=== PATIENT | female | born 1975 | race Caucasian/White ===

== ENCOUNTER 2016-09-22 00:25 | Emergency (ER) | payer OTHER ==
[~2016-09-22] VITALS: Ht 172.7 cm; Wt 77.6 kg
[~2016-09-22 00:25] MED LIST: CLONIDINE0.1 MG PO; HYDROXYZINE50 MG PO; PERCOCET 325 MG1 TAB PO; ZOFRAN4 M1 SL
--- NOTE | 2016-09-22 01:37 | ED GI/GU/ABDOMINAL COMPLAINT ---
History of Present Illness General Chief Complaint: General Adult Stated Complaint: "+N+V-D,KIDNEY INFECTION,FEVER SINCE 010 Source: patient Exam Limitations: no limitations Vital Signs & Intake/Output Vital Signs & Intake/Output Vital Signs Date Time Temp Pulse Resp B/P Pulse O2 O2 Flow FiO2 Ox Delivery Rate 09/22 0414 97.9 75 18 151/88 96 Room Air 09/22 0105 97.7 98 18 150/88 Allergies Coded Allergies: Iodinated Contrast Media - Oral and (Severe, ANAPHYLAXIS 09/22/16) venom-honey bee (Severe, ANAPHYLAXIS 09/22/16) morphine (Intermediate, HIVES 09/22/16) epinephrine (UNKNOWN 09/22/16) meperidine (UNKNOWN 09/22/16) Reconcile Medications CLONIDINE HCL (Clonidine) 0.1 MG TAB 1 TAB PO BID PRN OPITATE WITHDRAWAL Hydroxyzine Hydrochloride (Hydroxyzine) 50 MG TAB 1 TAB PO TID PRN WITHDRAWAL Ondansetron (Zofran Odt) 4 MG TAB.RAPDIS 1 TAB SL TID PRN nausea Ondansetron (Zofran Odt) 4 MG ODT 1 TAB SL TID PRN NAUSEA Oxycodone HCl/Acetaminophen (Percocet 10-325 MG Tablet) 10 MG-325 MG TABLET 1 TAB PO 4 TIMES/DAY PRN pain five... [id number] OXYCODONE HCL/ACETAMINOPHEN (Percocet 10-325 MG Tablet) 325 MG/10 MG TAB 1 TAB PO Q4-6 PRN PAIN OXYCODONE HCL/ACETAMINOPHEN (Percocet 10-325 MG Tablet) 325 MG/10 MG TAB 1 TAB PO Q4-6 PRN PAIN Triage Nurses Notes Reviewed? yes ? n Is pt currently ? No Onset: Gradual Duration: day(s): Timing: recent history Location: right flank, right lower quadrant Radiation: RLQ Activities at Onset: none Prior Abdominal Problems: none Modifying Factors: Worsens With: palpation, vomiting. Associated Symptoms: abdominal pain, nausea/vomiting HPI: 41-year-old woman presents with right flank pain and right lower quadrant pain for the past 3-4 days. She saw her primary care doctor who gave her ciprofloxacin for urinary tract infection. She states that she is no better. She notes that she has had several episodes of vomiting and nausea. She has also felt febrile. She has right lower quadrant abdominal pain. She has no shortness of breath chest pain diarrhea vaginal discharge. She is otherwise well. Past History Travel History Traveled to [place] past 21 day No Medical History Any Pertinent Medical History? 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 No Review of Systems Review of Systems Constitutional: Reports: no symptoms. EENTM: Reports: no symptoms. Respiratory: Reports: no symptoms. Cardiovascular: Reports: no symptoms. GI: Reports: no symptoms. Genitourinary: Reports: no symptoms. Musculoskeletal: Reports: no symptoms. Skin: Reports: no symptoms. Neurological/Psychological: Reports: no symptoms. Hematologic/Endocrine: Reports: no symptoms. Immunologic/Allergic: Reports: no symptoms. All Other Systems: Reviewed and Negative Physical Exam Physical Exam General Appearance: well developed/nourished, mild distress, moderate distress Head: atraumatic, normal appearance Eyes: Bilateral: normal appearance. Ears, Nose, Throat, Mouth: hearing grossly normal Neck: normal inspection, supple, full range of motion, normal alignment Respiratory: normal breath sounds, chest non-tender, no respiratory distress, quiet respiration, lungs clear Cardiovascular: regular rate/rhythm Gastrointestinal: normal bowel sounds, soft, right lower quadrant tenderness at the right side of pubic syphisis, at the bony prominence no rebound no guarding. Back: normal inspection, normal range of motion, muscle spasm, no vertebral tenderness Extremities: normal range of motion Neurologic/Psych: no motor/sensory deficits, awake, alert, oriented x 3 Skin: intact, normal color, warm/dry Core Measures ACS in differential dx? No Severe Sepsis Present: No Septic Shock Present: No Progress Differential Diagnosis: UTI/pyelo, versus kidney stones versus gastroenteritis versus other. Plan of Care: Orders Procedure Date/time Status CULTURE,URINE 09/22 41 Active URINE 09/22 41 Complete URINALYSIS 09/22 41 Complete LIPASE 09/22 41 Complete COMPREHENSIVE METABOLIC PANEL 09/22 41 Complete CBC WITHOUT DIFFERENTIAL 09/22 41 Complete AMYLASE 09/22 41 Complete Current Medications Sig/Dennis Start time Last Medication Dose Stop Time Status Admin Oxycodone/ 1 TAB ONCE ONE 09/22 414 CANr Acetaminophen 09/22 415 (Percocet) Oxycodone/ 2 TAB ONCE ONE 09/22 414 UNVr Acetaminophen 09/22 415 (Percocet) Laboratory Tests 09/22/16214: Urinalysis LIGHT H, Urine Color YEL, Urine Clarity CLEAR, Urine pH 6.5, Ur Specific [place] 1.020, Urine Protein 30 H, Urine Ketones NEG, Urine Nitrite NEG, Urine Bilirubin NEG, Urine Urobilinogen 0.2, Ur Leukocyte Esterase NEG, Ur Microscopic SEDIMENT EXAMINED, Urine RBC 5-10 H, Urine WBC 1-3 H, Ur Epithelial Cells MANY H, Urine Mucus FEW, Urine Hemoglobin SMALL H, Urine Glucose NEG, Urine Test NEGATIVE 09/22/16151: Anion Gap 14, Estimated GFR > 60, BUN/Creatinine Ratio 18.3, Glucose 130 H, Calcium 10.2, Total Bilirubin 0.7, AST 23, ALT 31, Alkaline Phosphatase 90, Total Protein 8.5 H, Albumin 4.9, Globulin 3.6, Albumin/Globulin Ratio 1.4, Amylase < 30 L, Lipase 209, CBC w Diff NO MAN DIFF REQ, RBC 4.23, MCV 96.0, MCH 32.8 H, RDW 13.8, MPV 7.9, Gran % 78.4 H, Lymphocytes % 16.0 L, Monocytes % 5.4, Eosinophils % 0, Basophils % 0.2, Absolute Granulocytes 7.8 H, Absolute Lymphocytes 1.6, Absolute Monocytes 0.5, Absolute Eosinophils 0, Absolute Basophils 0, PUBS MCHC 34.2 Microbiology 09/22 214 URINE ROUT: Urine Culture - RECD Diagnostic Imaging: Viewed by Me: Radiology Read. Discussed w/RAD: Radiology Read. Radiology Impression: abd/pelvic - mild stool burden, no acute findings... full report below. Initial ED EKG: none Comments: PATIENT: UMAIR LANDAVERDE PRESENT AGE: 41 PATIENT ACCOUNT NO: [id number] : 74 LOCATION: [facility] ORDERING PHYSICIAN: JEAN-PIERRE CAMACHO MD SERVICE DATE: 09/22/16 EXAM TYPE: CAT - CT ABD & PELVIS W/O IV CONTRAS EXAMINATION: CT ABDOMEN AND PELVIS WITHOUT CONTRAST CLINICAL INFORMATION: Right flank pain. Right lower quadrant pain. COMPARISON: 01/29/2011 TECHNIQUE: Multidetector volumetric imaging was performed from the superior aspect of the liver through the pubic symphysis. Sagittal and coronal reformatted images were obtained on the technologist's workstation. DLP: 333 mGy-cm FINDINGS: LUNG BASES: The visualized lung bases are unremarkable. LIVER, GALLBLADDER, AND BILIARY TREE: The liver is normal in size, shape, and attenuation. No focal hepatic lesion or biliary ductal dilatation is present. The gallbladder is unremarkable with no evidence of radiopaque gallstones, gallbladder wall thickening, or obvious pericholecystic inflammatory changes. PANCREAS: Unremarkable. SPLEEN: Unremarkable. ADRENAL GLANDS: Unremarkable. KIDNEYS AND URETERS: The kidneys are normal in size, shape, and attenuation. No hydronephrosis, hydroureter, or calculi seen. No perinephric stranding. BLADDER: Unremarkable. GASTROINTESTINAL TRACT: The stomach and small bowel appear unremarkable. No dilated loops of bowel or evidence of obstruction. Normal appendix. No colonic wall thickening or inflammatory change. Mild diffuse colonic stool burden. No free air or free fluid. ABDOMINAL WALL: No significant hernia is appreciated. LYMPH NODES: Normal. VASCULAR: Unremarkable. PELVIC VISCERA: The uterus is absent. No adnexal mass. OSSEOUS STRUCTURES: No acute or suspicious osseous abnormality. IMPRESSION: No acute findings of the abdomen or pelvis. No acute inflammatory changes. Mild colonic stool burden. DICTATED BY: KARUNA SOLIZ MD DATE/TIME DICTATED:09/22/16313 TAX ATTORNEY:SHERRIE DATE/TIME TRANSCRIBED:09/22/16313 CONFIDENTIAL, DO NOT COPY WITHOUT APPROPRIATE AUTHORIZATION. <Electronically signed in Other Vendor System> SIGNED BY: KARUNA SOLIZ MD 09/22 Departure Departure Disposition: HOME OR SELF CARE Condition: Stable Clinical Impression Primary Impression: Abdominal pain Secondary Impressions: Back pain Referrals: JUSTO JACOB MD (PCP/Family) Departure Forms: Customer Survey General Discharge Information Prescriptions: Current Visit Scripts Oxycodone HCl/Acetaminophen (Percocet 10-325 MG Tablet) 1 TAB PO 4 TIMES/DAY PRN pain #5 TAB five... [id number] Ondansetron (Zofran Odt) 1 TAB SL TID PRN nausea #10 TAB Comments 09/22/16, 4:21am... pt feeling more comfortable... labs/u/a benign... ct scan benign... discussed at length, pt safe for discharge with close follow up advised.
[2016-09-22 02:05] LABS: ABSOLUTE BASOPHIL COUNT 0 /CUMM (0.0-0.2); ABSOLUTE EOSINOPHIL COUNT 0 /CUMM (0.0-0.7); ABSOLUTE GRANULOCYTE CT 7.8 /CUMM (1.4-6.5); ABSOLUTE LYMPH COUNT 1.6 /CUMM (1.2-3.4); ABSOLUTE MONOCYTE COUNT 0.5 /CUMM (0.10-0.60); BASOPHIL % 0.2 % (0.0-2.0); EOSINOPHIL % 0 % (0-5); GRANULOCYTE % 78.4 % (42.2-75.2); HEMATOCRIT 40.6 % (37-47); MEAN CORPUSCULAR HGB 32.8 PG (27.0-31.0); MEAN CORPUSCULAR HGB CONC 34.2 G/DL (33.0-37.0); MEAN PLATELET VOLUME 7.9 FL (7.4-10.4); PLATELET COUNT 257 /CUMM (130-400); RBC DISTRIBUTION WIDTH 13.8 % (11.5-14.5); RED BLOOD CELL CT 4.23 /CUMM (4.20-5.40); WHITE BLOOD CELL COUNT 9.9 /CUMM (4.8-10.8)
--- NOTE | 2016-09-22 03:19 | CT SCAN REPORT ---
EXAMINATION: CT ABDOMEN AND PELVIS WITHOUT CONTRAST CLINICAL INFORMATION: Right flank pain. Right lower quadrant pain. COMPARISON: 01/29/2011 TECHNIQUE: Multidetector volumetric imaging was performed from the superior aspect of the liver through the pubic symphysis. Sagittal and coronal reformatted images were obtained on the technologist's workstation. DLP: 333 mGy-cm FINDINGS: LUNG BASES: The visualized lung bases are unremarkable. LIVER, GALLBLADDER, AND BILIARY TREE: The liver is normal in size, shape, and attenuation. No focal hepatic lesion or biliary ductal dilatation is present. The gallbladder is unremarkable with no evidence of radiopaque gallstones, gallbladder wall thickening, or obvious pericholecystic inflammatory changes. PANCREAS: Unremarkable. SPLEEN: Unremarkable. ADRENAL GLANDS: Unremarkable. KIDNEYS AND URETERS: The kidneys are normal in size, shape, and attenuation. No hydronephrosis, hydroureter, or calculi seen. No perinephric stranding. BLADDER: Unremarkable. GASTROINTESTINAL TRACT: The stomach and small bowel appear unremarkable. No dilated loops of bowel or evidence of obstruction. Normal appendix. No colonic wall thickening or inflammatory change. Mild diffuse colonic stool burden. No free air or free fluid. ABDOMINAL WALL: No significant hernia is appreciated. LYMPH NODES: Normal. VASCULAR: Unremarkable. PELVIC VISCERA: The uterus is absent. No adnexal mass. OSSEOUS STRUCTURES: No acute or suspicious osseous abnormality. IMPRESSION: No acute findings of the abdomen or pelvis. No acute inflammatory changes. Mild colonic stool burden.
[2016-09-22] MEDS ORDERED: PERCOCET 10-321 EACH PO (04:13)
[2016-09-22] MEDS ORDERED: ZOFRAN ODT4 M1 SL (04:13)
[2016-09-22 04:14] VITALS: BP 151/88
== END 2016-09-22 04:30 ==
LOC: ERH 00:25
PROVIDERS: Pediatrics
DX: R10.31 Right lower quadrant pain (principal); M54.9 Dorsalgia, unspecified
CPT/HCPCS: 74176; 81001; 81025; 87086; 96361; 96374; 96375; J1885; J2405; J2550